=== PATIENT | female | born 2000 | race Caucasian/White ===

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

== ENCOUNTER 2023-01-07 10:45 | Emergency (ER) | payer MEDICAID, SELFPAY ==
[2023-01-07 11:00] VITALS: BP 124/77; PULSE 76; RESP 18; TEMP 37.1; O2SAT 98; BMI 39.3
--- NOTE | 2023-01-07 11:21 | EXP.UTC ---
Discharge Plan Disposition Patient Disposition: Still a Patient Condition: Good Prescriptions Prescriptions: New amoxicillin 500 mg capsule 500 mg PO BID 10 Days Qty: 20 0RF ondansetron 4 mg tablet,disintegrating 4 mg PO Q8H PRN (Reason: nausea and vomiting) Qty: 10 0RF Referrals Follow up/Referrals: Provider,Referral, [Primary Care Provider] - See instructions Activity Restrictions/Add. Instructions Additional Instructions/Restrictions: *Monitor Temp, Over the counter Motrin or Tylenol as directed/as needed Tylenol every 4 hours and Motrin every 6 hours (as long as your family doctor has told you that you can take it) for fever or pain. and straight to ER if unable to lower temp less than 101.0 after medication given *Warm salt water gargles may help to soothe the throat *Throat Lozenges? *Warm fluids like tea with honey may help to soothe the throat? *Sleep elevated *Humidifier/Vaporizer Go home lay down and sleep off remainder of migraine headache Your throat swab was sent for culture. Those results are typically sent to your primary care. Be sure to follow up in 2-3 days with your family doctor/primary care physician if no improvement so they can review those result and treat if necessary. If you don?t have a primary care doctor, I recommend you get one but in the mean time, you will have to return to a walk in clinic Follow up IMMEDIATELY for new or worsening symptoms or no Noticeable improvement over the next 48-72 hours. 911 for difficulty breathing or swallowing Clinical Impressions Clinical Impression: Pharyngitis Qualifiers: Pharyngitis/tonsillitis etiology: unspecified etiology Qualified Code(s): J02.9 - Acute pharyngitis, unspecified Instructions Patient Instructions: Sore Throat, DI for Headache Discharge ED Provider: Mallory Cannon [facility] General Stated complaint: possible migraine, sore throat, nausea Mode of Arrival: Ambulatory Source of Information: Patient Limitations: No Limitations Time Seen by Provider: 01/07/23 11:15 Description of Symptoms (Recalled from Triage Doc. by RN): PATIENT C/O HEADACHE, SORE THROAT, AND STOMACH ACHE SINCE THURSDAY HEENT Symptoms (Recalled from RN notes): Yes Resp Symptoms (Recalled from RN notes): No Skin Symptoms (Recalled from RN notes): No MS Symptoms (Recalled from RN notes): No Functional Status (Recalled from RN notes): WNL History of Present Illness Provider Complaint: Patient states that she has been having having a headache, sore throat, upset stomach and feeling achy all over so today when she was still feeling bad so mother brought her in States that she took tylenol and vomited it up Related Data Previous Rx's Medication Instructions Recorded amoxicillin 500 mg capsule 500 mg PO BID 10 days #20 caps 01/07/23 ondansetron 4 mg disintegrating 4 mg PO Q8H PRN nausea and 01/07/23 tablet vomiting #10 tabs Allergies Allergy/AdvReac Type Severity Reaction Status Date / Time No Known Allergies Allergy Verified 01/14/21 20:44 Worker's Comp Is this a Worker's Comp case?: No [facility] Disclaimer: The information contained in this section may have been updated after the patient was seen, as this information can be updated by other users. Medical History (Updated 01/07/23 @ 11:32 by Mallory Cannon APRN) Depression Hyperlipidemia UTI (urinary tract infection) Surgical History (Updated 01/07/23 @ 11:22 by Tri Deal RN) H/O wisdom tooth extraction Social History Smoking Status: Unknown if ever smoked alcohol intake: never current occupational status: employed Travel in the last 8 weeks: None ROS Obtained: Yes All systems reviewed & no additional complaints except as documented and Yes Systems reviewed as appropriate & no additional complaints except as documented Constitutional Constitutional: Reports system reviewed and no additional complaints, except as docu
[2023-01-07 11:30] LABS: UTC Strep Screen (Rapid) Negative (Negative)
[2023-01-07 12:24] VITALS: BP 124/77; PULSE 76; RESP 18; TEMP 37.1; O2SAT 98
== END 2023-01-07 12:25 | disposition still patient (30) ==
PROVIDERS: Emergency Provider Nurse Practitioner
DX: J02.9 Acute pharyngitis, unspecified (principal); R51.9 Headache, unspecified; R11.0 Nausea; E78.5 Hyperlipidemia, unspecified; F32.A Depression, unspecified
CPT/HCPCS: 87880; 96372; 99212; 99214; G0463

== ENCOUNTER 2023-03-24 18:08 | Emergency (ER) | payer MEDICAID, SELFPAY ==
[2023-03-24 18:30] VITALS: BP 158/103; PULSE 103; RESP 20; TEMP 36.6; O2SAT 99; BMI 40.7
[2023-03-24 18:46] LABS: Adenovirus,PCR Not Detected (NotDetected); Coronavirus 19, PCR Not Detected (NotDetected); Coronavirus 229E Not Detected (NotDetected); Coronavirus NL63 Not Detected (NotDetected); Coronavirus OC43 Not Detected (NotDetected); Coronovirus HKU1,PCR Not Detected (NotDetected); Human Metapneumovirus Not Detected (NotDetected); Influenza A, PCR Not Detected (NotDetected); Influenza AH1, 2009 Not Detected (NotDetected); Influenza AH1, PCR Not Detected (NotDetected); Influenza AH3,PCR Not Detected (NotDetected); Influenza B, PCR Not Detected (NotDetected); Parainfluenza 1, PCR Not Detected (NotDetected); Parainfluenza 2, PCR Not Detected (NotDetected); Parainfluenza 3, PCR Not Detected (NotDetected); Parainfluenza 4, PCR Not Detected (NotDetected); Respiratory Syncytial Virus Not Detected (NotDetected)
[2023-03-24 18:50] LABS: UTC Strep Screen (Rapid) Negative (Negative)
--- NOTE | 2023-03-24 19:06 | EXP.UTC ---
Discharge Plan Disposition Patient Disposition: Home, Self-Care Condition: Good Prescriptions Prescriptions: New azithromycin [Zithromax Z-Mason] 250 mg tablet See Rx Instructions .ROUTE .COMPLEX 5 Days Qty: 6 0RF Rx Instructions: For 250 mg dose pack: take 500 mg today (day 1), then 250 mg for 4 days (days 2-5) methylprednisolone [Medrol (Mason)] 4 mg tablets,dose pack See Rx Instructions .Route .COMPLEX 6 Days Qty: 21 0RF Rx Instructions: taper pack; guaifenesin [Mucinex] 600 mg tablet extended release 12hr 1,200 mg PO BID PRN (Reason: cough) Qty: 20 0RF Referrals Follow up/Referrals: Provider,Referral, MD [Primary Care Provider] - See instructions Activity Restrictions/Add. Instructions Additional Instructions/Restrictions: Start antibiotic Be sure to complete entire prescription even if feeling better Monitor temp. Tylenol every 4 hours as needed and / or ibuprofen every 6 hours as needed ( As long as your primary care physician has told you that it ok to take both. For fever/aches/pains ER if no less than 101 despite Tylenol or Motrin Humidifier/vaporizer or hot steamy shower Mucinex for your cough Be sure to drink lots of water. *Start steroid tomorrow. Helps with inflammation therefore, cough and wheezing. Follow directions on the package. Reviewed side effects. Patient reports taking them before. Follow up IMMEDIATELY for new or worsening of symptoms OR no noticeable improvement over the next 48-72 hours. 911 immediately for any life threatening symptoms such as chest pain or difficulty breathing Clinical Impressions Clinical Impression: Sinusitis Qualifiers: Sinusitis location: unspecified location Chronicity: unspecified Qualified Code(s): J32.9 - Chronic sinusitis, unspecified Instructions Patient Instructions: Sinusitis, DI for Sinusitis Discharge ED Provider: Mallory Cannon [facility] [place] HPI General Stated complaint: losing breath, st, ear pain, congestion Mode of Arrival: Ambulatory Source of Information: Patient and Parent(s) Limitations: No Limitations Time Seen by Provider: 03/24/23 19:07 Description of Symptoms (Recalled from Triage Doc. by RN): PATIENT C/O COUGH, SINUS PRESSURE, SOA, AND SORE THROAT X 3-4 DAYS. 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 and several are out for RSV States that she has been having sinus pain and pressure, cough, sore throat and feels SOA at times States today she was feeling worse so she came in to get checked Related Data Previous Rx's Medication Instructions Recorded azithromycin 250 mg tablet See Rx Instructions PO .COMPLEX 5 03/24/23 (Zithromax Z-Mason) days #6 tabs guaifenesin 600 mg tablet, 1,200 mg PO BID PRN cough #20 tabs 03/24/23 extended release 12 hr (Mucinex) methylprednisolone 4 mg tablets in See Rx Instructions .Route 03/24/23 a dose pack (Medrol (Mason)) .COMPLEX 6 days #21 tabs Allergies Allergy/AdvReac Type Severity Reaction Status Date / Time No Known Allergies Allergy Verified 01/14/21 20:44 Worker's Comp Is this a Worker's Comp case?: No [facility] Disclaimer: The information contained in this section may have been updated after the patient was seen, as this information can be updated by other users. Medical History (Updated 03/24/23 @ 19:21 by Mallory Cannon APRN) Depression Hyperlipidemia UTI (urinary tract infection) Surgical History (Updated 01/07/23 @ 11:22 by Tri Deal RN) H/O wisdom tooth extraction Social History (Updated 01/07/23 @ 15:59 by Mallory Cannon APRN) Smoking Status: Unknown if ever smoked alc
[2023-03-24 19:40] VITALS: BP 127/83; PULSE 103; RESP 20; TEMP 36.6; O2SAT 99
[2023-03-24 23:28] LABS: Rhinovirus/Enterovirus Detected (NotDetected)
== END 2023-03-24 19:44 | disposition home or self-care (01) ==
PROVIDERS: Emergency Provider Nurse Practitioner
DX: J01.90 Acute sinusitis, unspecified (principal); B34.1 Enterovirus infection, unspecified; R09.81 Nasal congestion; R06.02 Shortness of breath; R07.0 Pain in throat; R05.9 Cough, unspecified; E78.5 Hyperlipidemia, unspecified
CPT/HCPCS: 87632; 87635; 87880; 96372; 99212; 99214; G0463

== ENCOUNTER 2023-07-06 18:03 | Emergency (ER) | payer MEDICAID, SELFPAY ==
[2023-07-06 19:00] VITALS: BP 126/80; PULSE 84; RESP 18; TEMP 36.6; O2SAT 100; BMI 41.8
--- NOTE | 2023-07-06 19:23 | ED_ITS ---
Discharge Plan Disposition Patient Disposition: Home, Self-Care Condition: Good Prescriptions Prescriptions: New methylprednisolone 4 mg Tablets,Dose Pack 4 mg PO DIRECTED 6 Days Qty: 21 0RF Rx Instructions: Take 1 pack as directed for 6 days triamcinolone acetonide 0.1 % cream 1 applic topical BID PRN (Reason: itching) Qty: 30 0RF No Action azithromycin [Zithromax Z-Mason] 250 mg tablet See Rx Instructions .ROUTE .COMPLEX 5 Days Qty: 6 0RF Rx Instructions: For 250 mg dose pack: take 500 mg today (day 1), then 250 mg for 4 days (days 2-5) methylprednisolone [Medrol (Mason)] 4 mg tablets,dose pack See Rx Instructions .Route .COMPLEX 6 Days Qty: 21 0RF Rx Instructions: taper pack; guaifenesin [Mucinex] 600 mg tablet extended release 12hr 1,200 mg PO BID PRN (Reason: cough) Qty: 20 0RF Referrals Follow up/Referrals: Natalie Otero APRN [Primary Care Provider] - See instructions Activity Restrictions/Add. Instructions Additional Instructions/Restrictions: Try to identify and avoid contact with the offending substance (poison herlinda). Don't start the oral steroids until tomorrow. Don't put the topical steroids (triamcinolone) on your face or your groin. Follow up with your regular doctor. GO TO THE ER FOR ANY WORSENING SYMPTOMS OR CONCERNS Clinical Impressions Clinical Impression: Contact dermatitis Instructions Patient Instructions: Contact Dermatitis, DI for Contact Dermatitis, Triamcinolone Topical, Methylprednisolone Discharge ED Provider: Deondre Roy [facility] General Stated complaint: rash w/ raised red bumps itching/flaking Time Seen by Provider: 07/06/23 19:24 History of Present Illness Provider Complaint: She states that for the past 2 weeks she has had an itchy rash on her arm, back, chest and neck. Related Data Previous Rx's Medication Instructions Recorded azithromycin 250 mg tablet See Rx Instructions PO .COMPLEX 5 03/24/23 (Zithromax Z-Mason) days #6 tabs guaifenesin 600 mg tablet, 1,200 mg PO BID PRN cough #20 tabs 03/24/23 extended release 12 hr (Mucinex) methylprednisolone 4 mg tablets in See Rx Instructions .Route 03/24/23 a dose pack (Medrol (Mason)) .COMPLEX 6 days #21 tabs methylprednisolone 4 mg tablets in 4 mg PO DIRECTED 6 days #21 tabs 07/06/23 a dose pack triamcinolone acetonide 0.1 % 1 applic topical BID PRN itching 07/06/23 topical cream #30 grams Allergies Allergy/AdvReac Type Severity Reaction Status Date / Time No Known Allergies Allergy Verified 01/14/21 20:44 [facility] Disclaimer: The information contained in this section may have been updated after the patient was seen, as this information can be updated by other users. Medical History (Updated 07/06/23 @ 19:29 by Deondre Roy APRN) Depression Hyperlipidemia UTI (urinary tract infection) Surgical History (Updated 01/07/23 @ 11:22 by Tri Deal RN) H/O wisdom tooth extraction Social History (Updated 01/07/23 @ 15:59 by Mallory Cannon APRN) Smoking Status: Unknown if ever smoked alcohol intake: never current occupational status: employed Travel in the last 8 weeks: None ROS Obtained: Yes All systems reviewed & no additional complaints except as documented Constitutional Constitutional: Denies chills and Denies fever(s) Eyes Eyes: Denies eye discharge ENT Ears, Nose, Mouth, and Throat: Denies dizziness, Denies otalgia and Denies sore throat Cardiovascular Cardiovascular: Denies chest pain Respiratory Respiratory: Denies shortness of breath, Denies chest congestion, Denies cough, Denies stridor and Denies wheezing Gastrointestinal Gastrointestingal: Denies nausea or vomiting Musculoskeletal Musculoskeletal: Reports system reviewed and no additional complaints, except as documented and Denies arthralgias Integumentary/Breasts Skin/Breast: Reports as per HPI and Reports rash Neurologic Neurologic: Denies dizziness and Denies paresthesias Allergic/Immunologic Allergic/Immunologic: Denies wheezing Physical Exam General General appearance: alert and in no apparent distress Head Head exam: atraumatic, normocephalic and normal inspection Eye Eye exam: Present normal appearance, PERRL and EOMI ENT ENT exam: Present normal exam, normal oropharynx, mucous membranes moist, TM's normal bilaterally and normal external ear exam Neck Neck exam: Present normal inspection, full ROM and trachea midline; Absent meningismus or lymphadenopathy Chest Chest inspection: Present normal inspection and symmetric chest wall rise; Absent tenderness Respiratory Respiratory exam: Present normal lung sounds bilaterally; Absent respiratory distress Cardiovascular Cardiovascular exam: Present regular rate and normal rhythm; Absent JVD Abdominal Exam Abdominal exam: Present soft and normal bowel sounds; Absent distention, tenderness or guarding Extremities Exam Extremities exam: Present normal inspection, full ROM and normal capillary refill; Absent calf tenderness Back Exam Back exam: Present normal inspection; Absent tenderness Neurological Exam Neurological exam: Present alert and oriented X3 Psychiatric Psychiatric exam: Present normal affect and normal mood Skin Skin exam: Present rash Lymphatic Lymphatic Findings: no adenopathy Medical Decision Making Medical Records Medical records reviewed: No I reviewed the patient's medical records. Jd Inquiry Pt receiving controlled substance: No
[2023-07-06 19:50] VITALS: BP 126/80; PULSE 84; RESP 18; TEMP 36.6; O2SAT 100
== END 2023-07-06 19:50 | disposition home or self-care (01) ==
PROVIDERS: Emergency Provider Nurse Practitioner Family; PCP Nurse Practitioner Family
DX: L25.9 Unspecified contact dermatitis, unspecified cause (principal)
CPT/HCPCS: 99212; 99214; G0463

== ENCOUNTER 2023-10-23 13:21 | Emergency (ER) | payer MEDICAID, SELFPAY ==
[2023-10-23 13:36] VITALS: BP 116/80; PULSE 77; RESP 14; TEMP 36.8; O2SAT 99; BMI 41.2
[2023-10-23] MEDS: UBROGEPANT 50MG TABLET 50 MG PO (14:11)
--- NOTE | 2023-10-23 14:50 | EXP.UTC ---
Discharge Plan Disposition Patient Disposition: Home, Self-Care Condition: Good Prescriptions Prescriptions: New meclizine 12.5 mg tablet 12.5 mg PO TID PRN (Reason: dizziness) Qty: 20 0RF No Action azithromycin [Zithromax Z-Mason] 250 mg tablet See Rx Instructions .ROUTE .COMPLEX 5 Days Qty: 6 0RF Rx Instructions: For 250 mg dose pack: take 500 mg today (day 1), then 250 mg for 4 days (days 2-5) methylprednisolone [Medrol (Mason)] 4 mg tablets,dose pack See Rx Instructions .Route .COMPLEX 6 Days Qty: 21 0RF Rx Instructions: taper pack; guaifenesin [Mucinex] 600 mg tablet extended release 12hr 1,200 mg PO BID PRN (Reason: cough) Qty: 20 0RF methylprednisolone 4 mg Tablets,Dose Pack 4 mg PO DIRECTED 6 Days Qty: 21 0RF Rx Instructions: Take 1 pack as directed for 6 days triamcinolone acetonide 0.1 % cream 1 applic topical BID PRN (Reason: itching) Qty: 30 0RF Referrals Follow up/Referrals: Natalie Otero APRN [Primary Care Provider] - See instructions Activity Restrictions/Add. Instructions Additional Instructions/Restrictions: Rest, fluids, stay cool and hydrated Clinical Impressions Clinical Impression: Migraine headache Instructions Patient Instructions: DI for Migraine Discharge ED Provider: Elisha Mendoza [facility] General Stated complaint: dizziness, headache Mode of Arrival: Ambulatory Source of Information: Patient Limitations: No Limitations Time Seen by Provider: 10/23/23 14:50 Description of Symptoms (Recalled from Triage Doc. by RN): pt states she awoke with a [place] in her temples that was an 8/10. pt states the [place] has improved and is now a 3/10. pt states her concern is that she is dizzy. pt denies N/V, photophobia or sensitivity to sound. pt has a hx of migraines but states she does not have dizziness with them typically. HEENT Symptoms (Recalled from RN notes): Yes Resp Symptoms (Recalled from RN notes): No Skin Symptoms (Recalled from RN notes): No MS Symptoms (Recalled from RN notes): No Functional Status (Recalled from RN notes): wnl History of Present Illness Provider Complaint: Patient states that she woke up this am with a headache. Initially rated 8/10. Has history of headaches. Doesn't like to take meds. Usually waits until they are gone. Went on to work. Headache subsided a ittle but then got very dizzy. [place] like she was going to fall or pass out. No fever. No ear pain, sore throat, congestion, nausea/vomiting/diarrhea. Has eaten today. Onset (ago): hour(s) (6) Location: head Relieving factors: none Exacerbating factors: none Associated symptoms: denies other symptoms Treatments prior to arrival: none Related Data Previous Rx's Medication Instructions Recorded azithromycin 250 mg tablet See Rx Instructions PO .COMPLEX 5 03/24/23 (Zithromax Z-Mason) days #6 tabs guaifenesin 600 mg tablet, 1,200 mg (2 x 600 mg) PO BID PRN 03/24/23 extended release 12 hr (Mucinex) cough #20 tabs methylprednisolone 4 mg tablets in See Rx Instructions .Route 03/24/23 a dose pack (Medrol (Mason)) .COMPLEX 6 days #21 tabs methylprednisolone 4 mg tablets in 4 mg PO DIRECTED 6 days #21 tabs 07/06/23 a dose pack triamcinolone acetonide 0.1 % 1 applic topical BID PRN itching 07/06/23 topical cream #30 grams meclizine 12.5 mg tablet 12.5 mg PO TID PRN dizziness #20 10/23/23 tabs Allergies Allergy/AdvReac Type Severity Reaction Status Date / Time No Known Allergies Allergy Verified 10/23/23 13:42 Worker's Comp Is this a Worker's Comp case?: No [facility] Disclaimer: The information contained in this section may have been updated after the patient was seen, as this information can be updated by other users. Medical History (Updated 10/23/23 @ 14:59 by MINI Rodriguez) UTI (urinary tract infection) Depression Hyperlipidemia Surgical History H/O wisdom tooth extraction Social History Smoking Status: Unknown if ever smoked alcohol intake: never current occupational status: employed Travel in the last 8 weeks: None ROS Obtained: Yes All systems reviewed & no additional complaints except as documented Constitutional Constitutional: Reports headache(s) ENT Ears, Nose, Mouth, and Throat: Reports headache(s) and Reports vertigo Neurologic Neurologic: Reports headache(s) and Reports vertigo Physical Exam General General appearance: alert and in no apparent distress Head Head exam: atraumatic, normocephalic and normal inspection Eye Eye exam: Present normal appearance, PERRL and EOMI ENT ENT exam: Present normal exam, normal oropharynx, mucous membranes moist, TM's normal bilaterally and normal external ear exam Neck Neck exam: Present normal inspection, full ROM, trachea midline and tenderness (right greater occipital tenderness); Absent meningismus or lymphadenopathy Chest Chest inspection: Present normal inspection and symmetric chest wall rise; Absent tenderness Respiratory Respiratory exam: Present normal lung sounds bilaterally; Absent respiratory distress Cardiovascular Cardiovascular exam: Present regular rate and normal rhythm; Absent JVD Abdominal Exam Abdominal exam: Present soft and normal bowel sounds; Absent distention, tenderness or guarding Extremities Exam Extremities exam: Present normal inspection, full ROM and normal capillary refill; Absent calf tenderness Back Exam Back exam: Present normal inspection; Absent tenderness Neurological Exam Neurological exam: Present alert and oriented X3 Psychiatric Psychiatric exam: Present normal affect and normal mood Skin Skin exam: Present rash Lymphatic Lymphatic Findings: no adenopathy Medical Decision Making Jd Inquiry Pt receiving controlled substance: No Vital Signs: 10/23/23 13:36 Temperature 98.2 F Temperature Source Oral Pulse Rate [Left] 77 Respiratory Rate 14 Blood Pressure [Right Arm] 116/80 Blood Pressure Mean [Right Arm] 92 Blood Pressure Source [Right Arm] Automatic Cuff Blood Pressure Position [Right Arm] Sitting 02 Sat by Pulse Oximetry 99 Oxygen Delivery Method Room Air Orders (Tests/Meds): ED MEDICATIONS Discontinued Medications Generic Name Dose Route Start Last Admin Trade Name Naveenq PRN Reason Stop Dose Admin Ubrogepant 50 mg 10/23/23 14:11 10/23/23 14:11 Ubrogepant 50mg Tablet PO 10/23/23 14:12 50 mg ONCE ONE Administration Medical Decision Narrative: Feeling mostly better after Ubrelvy, Gatorade
[2023-10-23 15:09] VITALS: BP 0/0; PULSE 81; RESP 16; TEMP 36.8
== END 2023-10-23 15:13 | disposition home or self-care (01) ==
PROVIDERS: Emergency Provider Physician Assistant; PCP Nurse Practitioner Family
DX: G43.909 Migraine, unspecified, not intractable, without status migrainosus (principal); R42 Dizziness and giddiness
CPT/HCPCS: 99212; 99214; G0463

== ENCOUNTER 2024-01-05 18:08 | Emergency (ER) | payer MEDICAID, SELFPAY ==
[2024-01-05 19:20] VITALS: BP 127/79; PULSE 85; RESP 20; TEMP 36.5; O2SAT 100; BMI 41.1
--- NOTE | 2024-01-05 19:22 | EXP.UTC ---
Discharge Plan Disposition Patient Disposition: Home, Self-Care Condition: Good Prescriptions Prescriptions: New sulfacetamide sodium 10 % drops 1 drp Eye-Left Q3H 7 Days Qty: 15 0RF [id number] [Bromfed DM] 2-30-10 mg/5 mL Syrup 5 ml PO Q6H PRN (Reason: Cough) Qty: 240 0RF azithromycin [Zithromax] 250 mg tablet 250 mg PO UD DOSE PK Qty: 6 0RF Rx Instructions: Take two (2) tablets today, then one (1) tablet days #2 thru #5 Referrals Follow up/Referrals: Natalie Otero APRN [Primary Care Provider] - See instructions Activity Restrictions/Add. Instructions Additional Instructions/Restrictions: Drink plenty of fluids. Take tylenol or ibuprofen for pain or fever. Take the medications as directed. Follow up with your regular doctor. GO TO THE ER FOR ANY WORSENING SYMPTOMS Clinical Impressions Clinical Impression: Conjunctivitis of left eye, Acute viral syndrome Sinusitis Qualifiers: Sinusitis location: unspecified location Chronicity: unspecified Qualified Code(s): J32.9 - Chronic sinusitis, unspecified Stand Alone Forms Stand Alone Forms: Work/School Release Instructions Patient Instructions: How to Instill Eye Drops, DI for Sinusitis, DI for Conjunctivitis Print Language Print Language: Grenadian Discharge ED Provider: Deondre Roy [facility] General Stated complaint: poss pink eye Time Seen by Provider: 01/05/24 19:22 Related Data Previous Rx's ?Medication ?Instructions ?Recorded azithromycin 250 mg tablet 250 mg PO UD DOSE PK #6 tabs 01/05/24 (Zithromax) [id number] 5 ml PO Q6H PRN Cough #240 mL 01/05/24 2 mg-30 mg-10 mg/5 mL oral syrup (Bromfed DM) sulfacetamide sodium 10 % eye drops 1 drp Eye-Left Q3H 7 days #15 mL 01/05/24 Allergies Allergy/AdvReac Type Severity Reaction Status Date / Time No Known Allergies Allergy Verified 10/23/23 13:42 [facility] Disclaimer: The information contained in this section may have been updated after the patient was seen, as this information can be updated by other users. Medical History (Updated 01/05/24 @ 19:49 by Deondre Roy APRN) UTI (urinary tract infection) Depression Hyperlipidemia Surgical History H/O wisdom tooth extraction Social History Smoking Status: Unknown if ever smoked alcohol intake: never current occupational status: employed Travel in the last 8 weeks: None ROS Obtained: Yes All systems reviewed & no additional complaints except as documented Constitutional Constitutional: Reports chills and Reports fever(s) Eyes Eyes: Denies eye discharge ENT Ears, Nose, Mouth, and Throat: Reports as per HPI Cardiovascular Cardiovascular: Denies chest pain Respiratory Respiratory: Denies chest congestion and Reports cough Gastrointestinal Gastrointestingal: Reports nausea; Denies abdominal pain, constipation, cramping, diarrhea or vomiting Musculoskeletal Musculoskeletal: Denies arthralgias Integumentary/Breasts Skin/Breast: Denies rash Neurologic Neurologic: Denies paresthesias Physical Exam General General appearance: alert and in no apparent distress Head Head exam: atraumatic, normocephalic and normal inspection Eye Eye exam: Present normal appearance, PERRL and EOMI ENT ENT exam: Present mucous membranes moist and normal external ear exam Expanded ENT Exam TM/Canal exam: Bilateral TM: erythema and bulging Nose exam: Absent sinus tenderness Mouth exam: Present normal external inspection; Absent drooling Teeth exam: Present normal inspection Throat exam: Present tonsillar erythema, tonsillomegaly and tonsillar exudate Neck Neck exam: Present normal inspection, full ROM and trachea midline; Absent tenderness, meningismus or lymphadenopathy Chest Chest inspection: Present normal inspection and symmetric chest wall rise; Absent tenderness Respiratory Respiratory exam: Present normal lung sounds bilaterally; Absent respiratory distress, wheezes, stridor or accessory muscle use Cardiovascular Cardiovascular exam: Present regular rate and normal rhythm; Absent systolic murmur or diastolic murmur Abdominal Exam Abdominal exam: Present soft and normal bowel sounds; Absent distention, tenderness, guarding, rebound or rigidity Extremities Exam Extremities exam: Present normal inspection and normal capillary refill; Absent calf tenderness Back Exam Back exam: Present normal inspection and full ROM; Absent tenderness, CVA tenderness (R) or CVA tenderness (L) Neurological Exam Neurological exam: Present alert, oriented X3 and CN II-XII intact Psychiatric Psychiatric exam: Present normal affect and normal mood Skin Skin exam: Present warm, dry, intact and normal color Medical Decision Making Medical Records Medical records reviewed: No I reviewed the patient's medical records. Jd Inquiry Pt receiving controlled substance: No Lab Data Lab results reviewed: Yes I reviewed the patient's lab results.
[2024-01-05 19:52] VITALS: BP 127/79; PULSE 85; RESP 20; TEMP 36.5; O2SAT 100
[2024-01-05 20:01] LABS: UTC Strep Screen (Rapid) Negative (Negative)
== END 2024-01-05 19:55 | disposition home or self-care (01) ==
PROVIDERS: Emergency Provider Nurse Practitioner Family; PCP Nurse Practitioner Family
DX: J01.90 Acute sinusitis, unspecified (principal); H10.32 Unspecified acute conjunctivitis, left eye; B34.9 Viral infection, unspecified
CPT/HCPCS: 87635; 87880; 99212; 99214; G0463

== ENCOUNTER 2024-02-16 17:33 | Emergency (ER) | payer MEDICAID, SELFPAY ==
[2024-02-16 18:10] VITALS: BP 146/86; PULSE 93; RESP 20; TEMP 36.8; O2SAT 99; BMI 42.5
--- NOTE | 2024-02-16 18:14 | EXP.UTC ---
Discharge Plan Disposition Patient Disposition: Home, Self-Care Condition: Good Prescriptions Prescriptions: New clotrimazole 1 % cream 1 applic topical BID 14 Days Qty: 15 0RF Referrals Follow up/Referrals: Natalie Otero APRN [Primary Care Provider] - See instructions Activity Restrictions/Add. Instructions Additional Instructions/Restrictions: Use the topical cream as directed. Follow up with your primary care provider. GO TO THE ER FOR ANY WORSENING CONCERNS Clinical Impressions Clinical Impression: Facial ringworm Instructions Patient Instructions: DI for Ringworm, Clotrimazole Topical Print Language Print Language: Bangladeshi Discharge ED Provider: Deondre Roy [facility] [place] HPI General Stated complaint: ? ringworm on face Time Seen by Provider: 02/16/24 18:14 History of Present Illness Provider Complaint: She states that over the past few days she had she an oval rash on the left side of her face. Related Data Previous Rx's ?Medication ?Instructions ?Recorded clotrimazole 1 % topical cream 1 applic topical BID 2 weeks #15 02/16/24 grams Allergies Allergy/AdvReac Type Severity Reaction Status Date / Time No Known Allergies Allergy Verified 10/23/23 13:42 [facility] Disclaimer: The information contained in this section may have been updated after the patient was seen, as this information can be updated by other users. Medical History (Updated 02/16/24 @ 18:24 by Deodnre Roy APRN) UTI (urinary tract infection) Depression Hyperlipidemia Surgical History H/O wisdom tooth extraction Social History Smoking Status: Unknown if ever smoked alcohol intake: never current occupational status: employed Travel in the last 8 weeks: None ROS Obtained: Yes All systems reviewed & no additional complaints except as documented Constitutional Constitutional: Denies chills and Denies fever(s) Eyes Eyes: Denies eye discharge ENT Ears, Nose, Mouth, and Throat: Denies dizziness, Denies otalgia and Denies sore throat Cardiovascular Cardiovascular: Denies chest pain Respiratory Respiratory: Denies shortness of breath, Denies chest congestion, Denies cough, Denies stridor and Denies wheezing Gastrointestinal Gastrointestingal: Denies nausea or vomiting Musculoskeletal Musculoskeletal: Reports system reviewed and no additional complaints, except as documented and Denies arthralgias Integumentary/Breasts Skin/Breast: Reports as per HPI and Reports rash Neurologic Neurologic: Denies dizziness and Denies paresthesias Allergic/Immunologic Allergic/Immunologic: Denies wheezing Physical Exam General General appearance: alert and in no apparent distress Head Head exam: atraumatic, normocephalic and normal inspection Eye Eye exam: Present normal appearance, PERRL and EOMI ENT ENT exam: Present normal exam, normal oropharynx, mucous membranes moist, TM's normal bilaterally and normal external ear exam Neck Neck exam: Present normal inspection, full ROM and trachea midline; Absent meningismus or lymphadenopathy Chest Chest inspection: Present normal inspection and symmetric chest wall rise; Absent tenderness Respiratory Respiratory exam: Present normal lung sounds bilaterally; Absent respiratory distress Cardiovascular Cardiovascular exam: Present regular rate and normal rhythm; Absent JVD Abdominal Exam Abdominal exam: Present soft and normal bowel sounds; Absent distention, tenderness or guarding Extremities Exam Extremities exam: Present normal inspection, full ROM and normal capillary refill; Absent calf tenderness Back Exam Back exam: Present normal inspection; Absent tenderness Neurological Exam Neurological exam: Present alert and oriented X3 Psychiatric Psychiatric exam: Present normal affect and normal mood Skin Skin exam: Present rash (there is a 1 cm oval skin lesion on the left side of her face. it has raised edges and a clear center) Lymphatic Lymphatic Findings: no adenopathy Medical Decision Making Medical Records Medical records reviewed: No I reviewed the patient's medical records. Screening: Per USPSTF and CDC recommendations, given the prevalence of disease in our region, it is our hospital?s policy to screen for HIV and viral Hepatitis for all patients aged 18 and over and those with ongoing risk factors. Jd Inquiry Pt receiving controlled substance: No Lab Data Lab results reviewed: Yes I reviewed the patient's lab results.
[2024-02-16 18:26] VITALS: BP 146/86; PULSE 93; RESP 20; TEMP 36.8; O2SAT 99
== END 2024-02-16 18:28 | disposition home or self-care (01) ==
PROVIDERS: Emergency Provider Nurse Practitioner Family; PCP Nurse Practitioner Family
DX: R21 Rash and other nonspecific skin eruption (principal); B35.4 Tinea corporis
CPT/HCPCS: 99212; G0381

== ENCOUNTER 2024-09-15 07:38 | Outpatient (CLI) | payer MEDICAID, SELFPAY ==
[2024-09-15 08:12] LABS: Basophils # 0.1 K/mm3 (0-0.2); Basophils % 0.5 % (0.1-2.0); Eosinophils # 0.1 Kmm3 (0.0-0.4); Eosinophils % 1.3 % (0.1-12.0); Hematocrit 41.2 % (37.0-47.0); Hemoglobin 13.5 g/dL (12.2-16.2); Immature Granulocytes # 0.06 10^3uL; Immature Granulocytes % 0.6 %; Lymphocytes # 3.9 K/mm3 (0.7-4.5); Lymphocytes % 40.7 % (10-50); Mean Corpuscular HGB Conc 32.8 g/dL (31.8-35.4); Mean Corpuscular Hemoglobin 28.5 pg (27.0-31.2); Mean Corpuscular Volume 86.9 fl (81-99); Mean Platelet Volume 9.9 fl (7.4-10.4); Monocytes # 0.6 K/mm3 (0.1-1.0); Monocytes % 6.1 % (1.7-9.3); Neutrophils # 4.9 K/mm3 (1.8-7.8); Neutrophils % 50.8 % (37.0-80.0); Nucleated Red Blood Cells # 0 10^3/uL; Nucleated Red Blood Cells % 0 %; Platelet Count 353 K/mm3 (142-424); Red Blood Count 4.74 M/mm3 (4.20-5.40); Red Cell Distribution Width 13.2 % (11.5-17.5); Red Cell Distribution Width-SD 41.5 fL; White Blood Count 9.7 K/mm3 (4.8-10.8)
[2024-09-15 08:40] LABS: Alanine Aminotransferase 35 U/L (12-78); Albumin Level 4.5 g/dl (3.5-5.0); Albumin/Globulin Ratio 1.5 (1.1-1.8); Alkaline Phosphatase 62 U/L (38-126); Anion Gap 13.4 mEq/L (5-15); Aspartate Amino Transferase 27 U/L (14-36); Bilirubin,Total 0.5 mg/dl (0.2-1.3); Blood Urea Nitrogen 12 mg/dl (7-17); Calcium 9.4 mg/dl (8.4-10.2); Carbon Dioxide 25 mmol/L (22.0-30.0); Chloride 103 mmol/L (98-107); Estimated Glomerular Filt Rate 106 ml/min (>60); GFR (African American) 128 ML/MIN (>60); Glucose 109 mg/dl (74-100); Potassium 4.4 mmoL/L (3.5-5.1); Sodium 137 mmol/L (136-145); Total Protein,Serum 7.5 g/dl (6.3-8.2)
[2024-09-15 08:42] LABS: Hemoglobin A1C 5.5 % (4.0-6.0)
[2024-09-15 09:00] LABS: HCG,Quantitative < 2 mIU/ml (0-5.42)
[2024-09-15 09:12] LABS: Thyroid Stimulating Hormone 3.82 uIU/mL (0.465-4.68)
[2024-09-16 06:33] LABS: Insulin Level Total 34.8 uIU/mL (2.6-24.9)
[2024-09-16 08:15] LABS: Estradiol 34.4 pg/mL (.); FSH 7.2 mIU/mL (.); Prolactin 20.9 ng/mL (4.8-33.4); Testosterone,Total 50 ng/dL (13-71)
== END 2024-09-15 23:59 | disposition home or self-care (01) ==
LOC: LAB 07:38
PROVIDERS: PCP Nurse Practitioner Family; Visit Provider Obstetrics & Gynecology
DX: E28.2 Polycystic ovarian syndrome (principal); N93.9 Abnormal uterine and vaginal bleeding, unspecified; N92.6 Irregular menstruation, unspecified; R21 Rash and other nonspecific skin eruption
CPT/HCPCS: 36415; 80053; 83001; 83036; 83498; 83525; 84146; 84403; 84443; 84702; 85025

== ENCOUNTER 2024-10-21 09:53 | Outpatient (CLI) | payer MEDICAID, SELFPAY ==
--- OUTSIDE RECORDS SUMMARY | 2024-10-24 10:23 | XMS_ITS | Data Portability ---
Author Organization [facility] ADMIN Address [address] [place] [id number] Care Team Providers Care [employer] Worker Name Role Phone NELIDA NICHOLAS Primary Care Provider Assessment No assessment recorded. Plan of Treatment Reminders Order Date Submit Date Provider Last Modified By Organization Details Last Modified Time Details Appointments FOLLOW UP 30 2024 12:30P M TESSIE OKEEFE NP Not available Not available Not available Lab lipid panel, serum 2023 024 [facility] [address] [place], [address], 08/18/2023 11:30:10 CMP, serum or plasma 2023 024 [facility] [address] [place], [address], 08/18/2023 11:30:08 TSH, serum or plasma 2023 024 [facility] [address] [place], [address], 08/18/2023 11:30:06 Referral dermatolo gist referral 2023 024 [facility], [address] [place] [address] Dr Herminio Ajay, [place], [address], 08/31/2023 14:01:09 Procedures None recorded. Surgeries None recorded. Imaging None recorded. Medication Orders Medrol (Mason) 4 mg tablets in a dose pack 2024 025 [facility], [address] [place] [address], [address], [place], [address], 08/05/2024 11:18:37 Benadryl 25 mg capsule 2024 025 [facility], [facility], [address], [place], [address], 08/05/2024 11:18:39 Patient TargetsNo targets recorded. Patient InstructionsNo instructions recorded. 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 Referral for M aculopapular eruption Referring Physician: Nelida Nicholas, Family Medicine, Encounter Date: 08/18/2023 Results Created Date Observation Date Name Description Value Unit Range Abnormal Flag Note LastModifiedBy Organization Detail LastModifiedTime 08/18/19 24 08/18/2023 THYRO ID STIMU LATIN G HORMO NE thyroid stimulating hormone 1.93 mIU/m L 0.34-4 .80 Not Available [facility] (Lab Registration) [address], [place], [address], 08/18/2023 11:30:06 08/18/19 24 08/18/2023 THYRO ID STIMU LATIN G HORMO NE note Unles s other messer noted testi ng perfo rmed at: [facility] [address] [place] [address] [phone] Constantino de los santos MD CLIA: [id number] Not Available [facility] (Lab Registration) [address], [place], [address], 08/18/2023 11:30:06 08/18/19 24 08/18/2023 COMP METAB OLIC PANEL sodium 140 mmol/ L 136-14 5 Not Available [facility] (Lab Registration) [address] [place], [address], 08/18/2023 11:30:08 08/18/19 24 08/18/2023 COMP METAB OLIC PANEL potassium 3.8 mmol/ L 3.5-5. 1 Not Available [facility] (Lab Registration) [address] [place], [address], 08/18/2023 11:30:08 08/18/19 24 08/18/2023 COMP METAB OLIC PANEL chloride 101 mmol/ L 98-107 Not Available [facility] (Lab Registration) [address] [place], [address], 08/18/2023 11:30:08 08/18/19 24 08/18/2023 COMP METAB OLIC PANEL carbon dioxide 27 mmol/ L 21-32 Not Available [facility] (Lab Registration) [address] [place], [address], 08/18/2023 11:30:08 08/18/19 24 08/18/2023 COMP METAB OLIC PANEL anion gap 12.0 Not Available [facility] (Lab Registration) [address] [place], [address], 08/18/2023 11:30:08 08/18/19 24 08/18/2023 COMP METAB OLIC PANEL glucose 93 mg/dL 70-110 Not Available [facility] (Lab Registration) [address] [place], [address], 08/18/2023 11:30:08 08/18/19 24 08/18/2023 COMP METAB OLIC PANEL blood urea nitrogen 11 mg/dL 7-18 Not Available [facility] (Lab Registration) [address] [place], [address], 08/18/2023 11:30:08 08/18/19 24 08/18/2023 COMP METAB OLIC PANEL creatinine 0.8 mg/dL 0.6-1. 0 Not Available [facility] (Lab Registration) [address] [place], [address], 08/18/2023 11:30:08 08/18/19 24 08/18/2023 COMP METAB OLIC PANEL BUN/creatini ne ratio 13.8 ratio 9-21 Not Available [facility] (Lab Registration) [address] [place], [address], 08/18/2023 11:30:08 08/18/19 24 08/18/2023 COMP METAB OLIC PANEL estimated glom filtration rate 97 mL/mi n >60- Not Available [facility] (Lab Registration) [address] [place], [address], 08/18/2023 11:30:08 08/18/19 24 08/18/2023 COMP METAB OLIC PANEL total protein 8.5 g/dL 6.4-8. 2 high Not Available [facility] (Lab Registration) [address] [place], [address], 08/18/2023 11:30:08 08/18/19 24 08/18/2023 COMP METAB OLIC PANEL albumin 3.9 g/dL 3.4-5. 0 Not Available [facility] (Lab Registration) [address] [place], [address], 08/18/2023 11:30:08 08/18/19 24 08/18/2023 COMP METAB OLIC PANEL calcium 9.6 mg/dL 8.5-10 .1 Not Available [facility] (Lab Registration) [address] [place], [address], 08/18/2023 11:30:08 08/18/19 24 08/18/2023 COMP METAB OLIC PANEL corrected calcium 9.7 mg/dL 8.5-10 .1 Not Available [facility] (Lab Registration) [address] [place], [address], 08/18/2023 11:30:08 08/18/19 24 08/18/2023 COMP METAB OLIC PANEL bilirubin total 0.4 mg/dL 0.4-1. 5 Not Available [facility] (Lab Registration) [address] [place], [address], 08/18/2023 11:30:08 08/18/19 24 08/18/2023 COMP METAB OLIC PANEL AST (SGOT) 23 U/L 15-37 Not Available [facility] (Lab Registration) [address] [place], [address], 08/18/2023 11:30:08 08/18/19 24 08/18/2023 COMP METAB OLIC PANEL ALT (SGPT) 45 U/L 12-78 Not Available [facility] (Lab Registration) [address] [place], [address], 08/18/2023 11:30:08 08/18/19 24 08/18/2023 COMP METAB OLIC PANEL alk phosphatase 72 U/L 50-120 Not Available [facility] (Lab Registration) [address] [place], [address], 08/18/2023 11:30:08 08/18/19 24 08/18/2023 COMP METAB OLIC PANEL note Unles s other messer noted testi ng perfo rmed at: [facility] 9 [facility] [place] [address] [phone] Constantino de los santos MD CLIA: [id number] Not Available [facility] (Lab Registration) [address] [place], [address], 08/18/2023 11:30:08 08/18/19 24 08/18/2023 LIPID PANEL triglyceride 262 mg/dL 20-200 high The Natio nal Marika stero l Educa tion Progr am (NCEP ) has set the follo wing guide lines for Fasti ng Trigl yceri sumi: TOREY L: <150 mg/dL BORDE RLINE HIGH: 150 - 199 mg/dL HIGH: 200 - 499 mg/dL VERY HIGH: > or =500 mg/dL Not Available [facility] (Lab Registration) [address] [place], [address], 08/18/2023 11:30:10 08/18/19 24 08/18/2023 LIPID PANEL cholesterol 234 mg/dL 0-200 high The Natio nal Marika stero l Educa tion Progr am (NCEP ) has set the follo wing guide lines for Fasti ng Marika stero l: JR ABLE: <200 mg/dL BORDE RLINE HIGH: 200 - 239 mg/dL HIGH: > or =240 mg/dL Not Available [facility] (Lab Registration) [address], [place], [address], 08/18/2023 11:30:10 08/18/19 24 08/18/2023 LIPID PANEL HDL cholesterol 44 mg/dL 60- low The Natio nal Marika stero l Educa tion Progr am (KSEP ) has set the follo wing guide lines for Fasti ng HDL Marika stero l: LOW HDL: <40 mg/dL TOREY L: 40 - 60 mg/dL JR ABLE: >60 mg/dL Not Available [facility] (Lab Registration) [address] [place], [address], 08/18/2023 11:30:10 08/18/19 24 08/18/2023 LIPID PANEL LDL calculated 138 mg/dL 100- The Natio nal Marika stero l Educa tion Progr am (KSEP ) has set the follo wing guide lines for Fasti ng LDL Marika stero l: OPTIM AL: < 100 mg/dL LOW RISK: 100 - 129 mg/dL BORDE RLINE HIGH: 130 - 159 mg/dL HIGH: 160 - 189 mg/dL VERY HIGH: > or = 190 mg/dL Not Available [facility] (Lab Registration) [address], [place], [address], 08/18/2023 11:30:10 08/18/19 24 08/18/2023 LIPID PANEL chol/HDL ratio 5 ratio -5 Not Available [facility] (Lab Registration) [address] [place], [address], 08/18/2023 11:30:10 08/18/19 24 08/18/2023 LIPID PANEL note Unles s other messer noted testi ng perfo rmed at: [facility] [address] [place] [address] [phone] Constantino de los santos MD CLIA: [id number] Not Available [facility] (Lab Registration) [address] [place], [address], 08/18/2023 11:30:10 Result Notes None recorded. Problems Name Problem SNOMED Code Status Onset Date Resolution Date Notes Provider Name and Address Organization Details Recorded Time Well child 314961837 Active Adan Gomes null, [place] - [facility] & [facility] 4 09:08:01 Acne 34094231 Active Adan Gomes null, [place] [facility] [place] [facility] & [place] 4 09:08:37 Poor short-term memory 789706313 Active Adan G[place], [place] [facility] [place] [facility] & [facility] 4 09:08:01 Dysmenorrhea 445818566 Active Ad[place] G[place] null, [place] [facility] 4 09:08:54 Patient encounter status 159903899 Active Adan Gomes [place] [facility] [place] [facility] & [facility] 4 09:08:01 Depressive disorder 65760705 Active Adan Gomes null[place] [facility] [place] [facility] & [place] 4 09:08:51 Finding related to ability to comprehend 809500902 Active Adan Gomes [place] [facility] [place] [facility] & [place] 4 09:08:01 Body mass index 40+ - severely obese 786574517 Active Adan G[place] [facility] [place] & [place] 4 09:08:01 Eczema 62591509 Active Adan [place] & [place] 4 09:09:04 Seasonal allergy 491224143 Active Adan Gomes [place] [facility] [place] [facility] & [place] 4 09:08:01 Posttraumatic stress disorder 20478513 Active Adan G[place] [facility] [place] [facility] & [place] 4 09:08:01 Upper respiratory infection 39012155 Active Adan G[place] [facility] [place] & [place] 4 09:08:01 Allergic rhinitis 15389825 Active Adan Gomes null, [facility] & [place] 4 09:08:45 Amygdalolith 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 Adan Gomes null, [facility] & [place] 4 09:08:01 Nasal congestion 03997225 Active Adan Gomes null, [facility] Escudero [facility] & [place] 4 09:08:01 Posterior rhinorrhea 84457713 Active Adan Gomes null, [facility] & [place] 4 09:08:01 Pityriasis rosea 38762878 Active Adan Gomes null, [facility] & [place] 4 09:08:01 Chronic pain 73464006 Active Adan Gomes null, [facility] & [place] 4 09:08:49 Acute frontal sinusitis 90984281 Active Adan Gomes null, [facility] Escudero NT [facility] & [place] 4 09:08:41 Maculopapular eruption 145657003 Active 2023 Nelida Nicholas MD [address] [place] [address], [address] [place] [address] & [place] 4 09:38:22 Problem Notes None recorded. Procedures Surgical History Date Name Laterality Status Provider Name and Address Organization Details Recorded Time 05/04/2018 Other completed Jayleen Colon [facility] & [place] 10/04/2024 11:45:06 Imaging Results None recorded. Procedure Notes None recorded. Medical Equipment None Reported. Allergies Allergen ID Allergen Name Allergen Category Reaction Reaction Severity Criticality Documentation Date Start Date Code Code System Note Provider Name and Address Organization Details Recorded Time 224960 Product containin g penicilli n (product) medicatio n Not available Not available Not available 08/05/2024 89913 8001 SNOMED Adan Gomes null, [facility]E - [facility] & [place] 5 11:15:17 Medications Name Sig Start Date Stop Date Status Note LastModified by Organization Details LastModified Time amoxicillin 500 mg capsule 1 {capsule} twice a day by oral route. 08/17 completed Not Available Not Available Not Available azithromyci n 250 mg tablet TAKE 2 TABLETS BY MOUTH TODAY, THEN TAKE 1 TABLET DAILY FOR 4 DAYS DIRECTED active Not Available Not Available No t Available Medrol (Mason) 4 mg tablets in a dose pack Take 1 dose pk by oral route. 2024 active Not Available Not Available Not Avai lable triamcinolo ne acetonide 0.1 % topical cream 08/17 completed Not Available Not Available Not Available sulfacetami de sodium 10 % eye drops INSTILL 1 DROP IN LEFT EYE EVERY 3 HOURS FOR 7 DAYS active Not Available Not Available No t Available Ear Drops (carbamide peroxide) 6.5 % PLEASE SEE ATTACHED FOR DETAILED DIRECTION S active Not Available Not Available No t Available bromphenira mine-pseudo ephedrine-D M 2 mg-30 mg-10 mg/5 mL oral syrup TAKE 5 ML ORALLY EVERY 6 HOURS NEEDED FOR COUGH active Not Available Not Available No t Available ondansetron 4 mg disintegrat ing tablet 08/17 completed Not Available Not Available Not Available fluticasone propionate 50 mcg/actuati on nasal spray,suspe nsion 1 {spray_in _each_nos tril} by nasal route. active Not Available Not Available No t Available ipratropium bromide 21 mcg (0.03 %) nasal spray 1 {spray_in _each_nos tril} 3 times a day by nasal route. 2021 active Not Available Not Available Not Avai lable spironolact one 50 mg tablet 1 {tablet} by oral route. active Not Available Not Available No t Available amoxicillin 875 mg-potassiu m clavulanate 125 mg tablet 1 {tablet} twice a day by oral route. 2021 active Not Available Not Available Not Avai lable Benadryl 25 mg capsule Take 1 capsule 3 times a day by oral route as needed, for ITCHING. 2024 active Not Available Not Available Not Avai lable Mucus Relief ER 600 mg tablet, extended release 08/17 completed Not Available Not Available Not Available Vitals Date Recorded Body height Body mass index (BMI) Body weight Body temperature Oxygen saturation Oxygen saturation in Arterial blood by Pulse oximetry Heart rate Systolic blood pressure Diastolic blood pressure Provider Name and Address Organization Details Last Updated DateTime 5 175.26 cm 42.8 kg/m2 970171. 79 g 97.2 [degF] 96 % 96 % 73 /min 125 mm[Hg] 81 mm[Hg] Parth anglin [facility] & [place] 5 10:55:35 Date Recorded Body height Body mass index (BMI) [Percentile] Per age and sex Body mass index (BMI) Body weight Body temperature Oxygen saturation Oxygen saturation in Arterial blood by Pulse oximetry Heart rate Respiratory rate Systolic blood pressure Diastolic blood pressure Provider Name and Address Organization Details Last Updated DateTime 4 175.26 cm 98 % 42.1 kg/m2 403030. 83 g 97.7 [degF] 98 % 98 % 90 /min 18 /min 131 mm[Hg] 95 mm[Hg] Adan Gomes [facility] & [place] 4 09:07:36 Social History Question Answer Notes LastModified by Organizat ion Details LastModified Time Tobacco Smoking Status Never Smoker Adan Gomes [facility] & [place] 08/18/2023 09:09:22 Do You Have An Advance Directive? No [email or web address] Information n ot available 08/18/2023 If You Are , What Was Your Level Of Alcohol Consumption Prior To ? None [email or web address] Information not available 08/18/2023 Do You Wear A Helmet When Biking? Yes Information not available 08/18/2023 Are You Blind Or Do You Have Difficulty Seeing? No [email or web address] Information n ot available 08/18/2023 Is Blood Transfusion Acceptable In An Emergency? No [email or web address] Information not available 08/18/2023 What Is Your Level Of Caffeine Consumption? Occasional [email or web address] Information not available 08/18/2023 In The 14 Days Before Symptom Onset, Have You Had Close Contact With A Laboratory-confirm ed COVID-19 While That Case Was Ill? No Information n ot available 08/18/2023 In The 14 Days Before Symptom Onset, Have You Had Close Contact With A Person Who Is Under Investigation For COVID-19 While That Person Was Ill? No [email or web address] Information not available 08/18/2023 Have You Been To An Area Known To Be High Risk For COVID-19? No [email or web address] Information not available 08/18/2023 Are You Deaf Or Do You Have Serious Difficulty Hearing? No Information not available 08/18/2023 What Type Of Diet Are You Following? REGULAR [email or web address] Information n ot available 08/18/2023 Have You Processed Blood Or Body Fluids From An Ebola Virus Disease Patient Without Appropriate PPE? No [email or web address] Information not available 08/18/2023 Do You Reside In Or Have You Traveled To An Area Where Ebola Virus Transmission Is Active? No [email or web address] Information not available 08/18/2023 Have There Been Any Changes To Your Family Or Social Situation? No [email or web address] Information no t available 08/18/2023 What Is The Fluoride Status Of Your Home? Unknown [email or web address] Information not available 08/18/2023 Are There Any Guns Present In Your Home? No [email or web address] Information not available 08/18/2023 Have You Recently Or Are You Planning To Travel To An Area With Zika Virus? No [email or web address] Information not available 08/18/2023 Do You Use Insect Repellent Routinely? Yes [email or web address] Information not available 08/18/2023 Do You Feel Safe At Home? Yes Information not available 08/18/2023 Do You Have A Medical Power Of Moving Picture Operator? No [email or web address] Information not available 08/18/2023 What Was The Date Of Your Most Recent Tobacco Screening? 08/05/2024 [email or web address] Information not available 08/05/2024 Do You Have Any Pets? No Information not available 08/18/2023 Do You Use Your Seat Belt Or Car Seat Routinely? Yes [email or web address] Information not available 08/18/2023 Do You Have Smoke And Carbon Monoxide Detectors In Your Home? Yes [email or web address] Information not available 08/18/2023 Are You Passively Exposed To Smoke? No [email or web address] Information no t available 08/18/2023 Do You Use Sunscreen Routinely? Yes [email or web address] Information not available 08/18/2023 Do You Have Difficulty Walking Or Climbing Stairs? No [email or web address] Information not available 08/18/2023 Are You Currently In School? No [email or web address] Information not available 08/18/2023 Sex: Unknown Functional Status Question Answer Note LastModified by Organizat ion Details LastModified Time Do you use any illicit or recreational drugs? No [email or web address] Information not available 08/18/2023 Do you or have you ever used any other forms of tobacco or nicotine? No [email or web address] Information not available 08/18/2023 What is your level of alcohol consumption? None [email or web address] Information not available 08/18/2023 Are you currently employed? Yes [email or web address] Information not available 08/18/2023 Do you have transportation difficulties? No [email or web address] Information not available 08/18/2023 Are you able to walk? YESWOREST [email or web address] Information not available 08/18/2023 Do you have difficulty doing errands alone? No [email or web address] Information not available 08/18/2023 Are you able to care for yourself? 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 No [email or web address] Information not available 08/18/2023 What is your exercise level? Occasional [email or web address] Information not available 08/18/2023 Mental Status Question Answer Note LastModified by Organizat ion Details LastModified Time Do you feel stressed (tense, restless, nervous, or anxious, or unable to sleep at night)? [id number] [email or web address] Information not available 08/18/2023 Do you have difficulty concentrating, remembering or making decisions? No [email or web address] Information no t available 08/18/2023 Family History Relationship Description Onset Age of this Age Resolved Age Notes LastModified by Organization Details LastModified Time Father No current problems or disability Not available 08/05 10:45:50 Mother No current problems or disability [email or web address] Not available 08/05 10:45:50 Mother Disorder of endocrine system pt. added direct ly (08/04) [email or web address] Not available 08/04/2024 11:51:24 Mother Mental health problem pt. added direct ly (08/04) [email or web address] Not available 08/04/2024 11:52:38 Maternal Grandfather Disease of liver pt. added direct ly (08/04) [email or web address] Not available 08/04/2024 11:51:45 Paternal Grandfather Kidney disease pt. added direct ly (08/04) [email or web address] Not available 08/04/2024 11:52:05 Maternal Uncle Mental health problem pt. added direct ly (08/04) [email or web address] Not available 08/04/2024 11:52:38 Brother Mental health problem pt. added direct ly (08/04) [email or web address] Not available 08/04/2024 11:52:38 Medical History Condition Response Depression Y High Cholesterol Y Gynecological HistoryNo gynecological history recorded. Obstetrics History GPAL:G 0 P 0 0 0 0 Immunizations Vaccine Type Date Status Note Provider Nam e and Address Organization Details Recorded Time Influenza, split virus, quadrivalent, preservative 6 completed Jayleen Colon null, [place] [facility] [place] & [facility] 10/04/2024 11:44:42 Influenza, split virus, quadrivalent, preservative 7 completed Jayleen Colon [place] [facility] & [facility] 10/04/2024 11:44:42 Hib, unspecified formulation 3 completed Jayleen Colon [place] [facility] [place] [facility] & [place] 10/04/2024 11:44:42 Hib, unspecified formulation 3 completed Jayleen Colon [place] [facility] [facility] & [place] 10/04/2024 11:44:42 HPV9 6 completed Jayleen Colon [place] [facility] [place] 10/04/2024 11:44:42 HPV9 6 completed Jayleen Colon [place] [facility] [place] [facility] & [place] 10/04/2024 11:44:42 HPV9 7 completed Jayleen Colon [place] [facility] [facility] & [place] 10/04/2024 11:44:42 IPV 4 completed Jayleen Colon [place] [facility] [place] [facility] & [place] 10/04/2024 11:44:42 IPV 3 completed Jayleen Colon [place] 10/04/2024 11:44:42 IPV 3 completed Jayleen Colon [place] & [place] 10/04/2024 11:44:42 MMR 4 completed Jayleen [place] & [place] 10/04/2024 11:44:42 MMRV 7 completed Jayleen [place] & [place] 10/04/2024 11:44:42 pneumococcal conjugate PCV 7 4 completed Jayleen [place] & [place] 10/04/2024 11:44:42 pneumococcal conjugate PCV 7 4 completed Jayleen [place] [facility] [facility] 10/04/2024 11:44:42 Tdap 5 completed Jayleen Colon [place] & [place] 10/04/2024 11:44:42 varicella 4 completed Jayleen [place] [facility] [facility] & [place] 10/04/2024 11:44:42 Hep B, adolescent or pediatric 3 completed Jayleen [place] [facility] [facility] & [place] 10/04/2024 11:44:42 Hep B, adolescent or pediatric 4 completed Jayleen [place] 10/04/2024 11:44:42 Hep B, adolescent or pediatric 3 completed Jayleen [place] [facility] [place] 10/04/2024 11:44:42 Hep A, ped/adol, 2 dose 8 completed Jayleen [place] [facility] [place] 10/04/2024 11:44:42 Hep A, ped/adol, 2 dose 7 completed Jayleen [place] [facility] [place] 10/04/2024 11:44:42 Hib (PRP-OMP) 4 completed Jayleen Colon [place] [facility] & [place] 10/04/2024 11:44:42 Hib (PRP-OMP) 4 completed Jayleen Colon [place] [facility] & [place] 10/04/2024 11:44:42 meningococcal MCV4P 9 completed Jayleen Colon [place] [facility] & [place] 10/04/2024 11:44:42 DTaP, unspecified formulation 4 completed Jayleen Colon [place] [facility] & [place] 10/04/2024 11:44:42 DTaP, unspecified formulation 3 completed Jayleen Colon [place] [facility] 10/04/2024 11:44:42 DTaP, unspecified formulation 4 completed Jayleen [place] [facility] 10/04/2024 11:44:42 DTaP, unspecified formulation 3 completed Jayleen Colon [place] [facility] [facility] 10/04/2024 11:44:42 meningococcal MCV4, unspecified formulation 5 completed Jayleen Colon [place] [facility] [facility] [place] 10/04/2024 11:44:42 DTaP-Hep B-IPV 7 completed Jayleen [place] [facility] [place] 10/04/2024 11:44:43 Influenza, live, quadrivalent, intranasal 4 completed Jayleen [place] [facility] [place] 10/04/2024 11:44:43 Influenza, live, quadrivalent, intranasal 4 completed Jayleen [place] [facility] [place] 10/04/2024 11:44:43 Influenza, split virus, quadrivalent, PF 8 completed Jayleen [place] & [place] 10/04/2024 11:44:43 Influenza, split virus, quadrivalent, PF 9 completed Jayleen Tommy mcgee, HAYDEE - [facility] - [place] & [place] 10/04/2024 11:44:43 Past Encounters Encounter ID Performer Location Encounter Start Date Encounter Closed Date Diagnosis/Indication Diagnosis SNOMED-CT Code Diagnosis ICD10 Code Diagnosis Note [id number] Nelida Nicholas MD [address] [place] [id number] 08/18/2023 08:28:50 08/18/2023 15:33:27 Hyperlipidemia 05973665 E78.5 We will recheck labs. Call test results. Consider treatment if needed. Continue diet modificati ons. Maculopapu lar eruption [id number] R21 Patient has seen dermatolog y for this in the past. She was told if it came back she should have a biopsy done. We will refer to dermatolog ist for this. [id number] John Eaton MD [address] [place] [id number] 08/05/2024 10:45:38 08/08/2024 07:41:48 Allergic disorder of skin 803465521 L23.9 WILL TREAT PATIENT WITH A COURSE OF STEROIDS. SHE HAS BEEN ADVISED TO AVOID PENICILLIN AND PENICILLIN DERIVED MEDICATION S GOING FORWARDIF SYMPTOMS WORSEN SHE HAS BEEN ADVISED TO GO TO THE EMERGENCY DEPARTMENT . Secondary amenorrhea [id number] N91.1 patient mentions that she has not had a period in the last 90 days. She states she has not sexually active. She already has an appointmen t to see the OBGYN on the . I have advised her to keep that appointmen t. We have also spent 30 mins discussein g causes of amenorrhea Health Concerns Section Related Observation LastModified by Organization Detai ls LastModified Time None Recorded Concern Status LastModified by Organization Details LastModified Time None Recorded Advance Directives Directive N: Payers Insurance Date Sequence Insurance Name Policy Number Policy Sosa Covered Member ID Sosa Member ID Guarantor Name 07/22/2021 1 UNSPECIFIED REMIT PAYOR Kiana Tan 02/28/2019 1 [place] Kiana Tan [id number] Kiana Tan 05/15/2021 1 MEDICAID-[facility] CHOICES - FFS/TRADITIONA L Kiana Annmarie Dominick [id number] Kiana Tan 10/22/2024 1 [employer] (MEDICAID REPLACEMENT - HMO) [id number] Kiana Anglin Dominick [id number] Kiana Annmarie Dominick Notes Date Note Type Note Provider Name and Address Organization Details Recorded Time 08/18/2023 text/html 22-year-old sarah le here for evaluation of medical issues. Patient states she would blood work done a couple years ago and was told her cholesterol was high. Patient states since she was told this she has been watching her diet and cut out red meat. She would like to have this rechecked. Patient has also had intermittent rash. This is a diffuse macular rash on arms abdomen chest legs. It does not itch. She has been treated in the past for this but it did not resolve. The rash is not pruritic.Patient has no other medical complaints. She would like to have repeat blood work done. She has on no medications at this time. Nelida Nicholas MD [address] [place] [address], [phone], [facility] & [place] 08/18/2023 09:38:44 08/05/2024 text/html patient presents with a petechial rash to her entire body. She states that rash has happened 3 times in her life. Each occasion is preceded by a prescription for amoxicillinpatient also mentions that she has not had a period for the last 3 months. She denies being sexually active. John Eaton MD [address] [place] [address], [phone], [facility] & [place] 08/05/2024 11:24:43 OBGyn Episode No OBEpisode recorded.
[2024-10-24 20:43] LABS: Neisseria gonorrhoeae, NAA Negative (Negative)
== END 2024-10-21 23:59 | disposition home or self-care (01) ==
LOC: LAB.DROPOF 10-24 09:54
PROVIDERS: PCP Nurse Practitioner Family; Visit Provider Obstetrics & Gynecology
DX: N92.6 Irregular menstruation, unspecified (principal); N93.9 Abnormal uterine and vaginal bleeding, unspecified; Z30.430 Encounter for insertion of intrauterine contraceptive device
CPT/HCPCS: 87491; 87591

== ENCOUNTER 2025-04-20 14:06 | Outpatient (CLI) | payer MEDICAID, SELFPAY ==
[2025-04-20 20:30] LABS: Coronavirus 19, PCR Not Detected (NotDetected); Influenza A, PCR Not Detected (NotDetected); Influenza B, PCR Not Detected (NotDetected)
== END 2025-04-20 23:59 | disposition home or self-care (01) ==
LOC: LAB.DROPOF 04-21 09:51
PROVIDERS: PCP Nurse Practitioner Family; Visit Provider Student in an Organized Health Care Education/Training Program
DX: R50.9 Fever, unspecified (principal)
CPT/HCPCS: 87631